=== PATIENT | male | born 1975 | race Caucasian/White ===

== ENCOUNTER 2017-02-09 10:20 | Observation (INO) | payer SELFPAY ==
[~2017-02-09] VITALS: Ht 177.8 cm; Wt 93.3 kg
[2017-02-09 10:59] LABS: DAU SCREEN DISCLAIMER
[2017-02-09] MEDS ORDERED: LORazepam 1MG TABLET PO ONE (11:00)
[2017-02-09 11:03] LABS: BLOOD UREA NITROGEN 6 mg/dL (7-18)
[2017-02-09 11:05] LABS: ACETAMINOPHEN < 2 mcg/mL (10-30)
[2017-02-09] MEDS ORDERED: LORazepam 1MG TABLET ONE (11:10)
[2017-02-09] MEDS ORDERED: ZIPRASIDONE 20MG CAPSULE PO PRN (14:30)
[2017-02-09] MEDS ORDERED: ZIPRASIDONE 20 MG INJ IM PRN (14:30)
[2017-02-09 15:09] VITALS: BP 163/83
[2017-02-09] MEDS ORDERED: POTASSIUM CHLORIDE 10 MEQ, MVI ADULT 10 ML, FOLIC ACID 1 MG, MAGNESIUM SULFATE 1 GM in ... IV SCH (15:15)
[2017-02-09] MEDS ORDERED: ENOXAPARIN 40 MG/0.4 ML SQ SCH (15:30)
[2017-02-09] MEDS ORDERED: LORazepam 2 MG/ML, 1ML IV PRN ×5 (15:30)
[2017-02-09] MEDS ORDERED: LORazepam 0.5MG TABLET PO PRN (15:30)
[2017-02-09] MEDS ORDERED: ACETAMINOPHEN 325 MG TABLET PO PRN (15:30)
[2017-02-09] MEDS ORDERED: LORazepam 1MG TABLET PO PRN ×4 (15:30)
[2017-02-09] MEDS: CHLORDIAZEPOXIDE 25 MG CAPSULE PO SCH ×2 (16:17→20:13)
[2017-02-09 19:39] VITALS: BP 150/82
[2017-02-10] MEDS: ACETAMINOPHEN 325 MG TABLET PO PRN ×3 (01:13→21:31)
[2017-02-10 02:56] VITALS: BP 149/80
[2017-02-10 07:44] VITALS: BP 150/93
[2017-02-10] MEDS: MULTIVITAMINS/MINERALS TABLET PO SCH (08:20)
[2017-02-10] MEDS: CHLORDIAZEPOXIDE 25 MG CAPSULE PO SCH ×3 (08:20→21:31)
[2017-02-10 13:24] VITALS: BP 146/68
[2017-02-10] MEDS: LORazepam 1MG TABLET PO PRN (14:53)
[2017-02-10] MEDS ORDERED: POTASSIUM CHLORIDE 10 MEQ, MVI ADULT 10 ML, FOLIC ACID 1 MG, MAGNESIUM SULFATE 1 GM in ... IV SCH (17:00)
[2017-02-10] MEDS: ENOXAPARIN 40 MG/0.4 ML SQ SCH (17:00)
[2017-02-10 20:00] VITALS: BP 144/74
[2017-02-11 02:26] VITALS: BP 126/87
[2017-02-11] MEDS: ACETAMINOPHEN 325 MG TABLET PO PRN ×3 (04:41→21:23)
[2017-02-11 06:59] VITALS: BP 133/80
[2017-02-11] MEDS: CHLORDIAZEPOXIDE 25 MG CAPSULE PO SCH ×3 (08:23→21:23)
[2017-02-11] MEDS: MULTIVITAMINS/MINERALS TABLET PO SCH (08:23)
[2017-02-11 12:53] VITALS: BP 144/83
[2017-02-11] MEDS: NICOTINE 14MG/24 HR PATCH.TD24 TD SCH (16:08)
[2017-02-11] MEDS: ENOXAPARIN 40 MG/0.4 ML SQ SCH (16:08)
[2017-02-11 20:28] VITALS: BP 132/64
[2017-02-12 01:50] VITALS: BP 122/69
[2017-02-12] MEDS: ACETAMINOPHEN 325 MG TABLET PO PRN ×2 (03:35→20:54)
[2017-02-12 07:39] VITALS: BP 126/83
[2017-02-12] MEDS: CHLORDIAZEPOXIDE 25 MG CAPSULE PO SCH ×3 (10:00→20:54)
[2017-02-12] MEDS: MULTIVITAMINS/MINERALS TABLET PO SCH (10:00)
[2017-02-12] MEDS: NICOTINE 14MG/24 HR PATCH.TD24 TD SCH (13:13)
[2017-02-12 14:57] VITALS: BP 127/86
[2017-02-12] MEDS: ENOXAPARIN 40 MG/0.4 ML SQ SCH (16:18)
[2017-02-12 20:30] VITALS: BP 145/87
[2017-02-13] MEDS: ACETAMINOPHEN 325 MG TABLET PO PRN ×3 (02:19→15:49)
[2017-02-13 02:29] VITALS: BP 118/78
[2017-02-13 07:20] VITALS: BP 152/88
[2017-02-13] MEDS: MULTIVITAMINS/MINERALS TABLET PO SCH (10:36)
[2017-02-13] MEDS: CHLORDIAZEPOXIDE 25 MG CAPSULE PO SCH ×2 (10:36→15:48)
[2017-02-13] MEDS: NICOTINE 14MG/24 HR PATCH.TD24 TD SCH (13:06)
[2017-02-13] MEDS ORDERED: CHLO25CA9 PO ×2 (13:56→17:40)
[2017-02-13 15:00] VITALS: BP 141/89
[2017-02-13] MEDS ORDERED: ENOXAPARIN 40 MG/0.4 ML SQ SCH (16:00)
[2017-02-13] MEDS: LORazepam 1MG TABLET PO PRN (16:02)
== END 2017-02-13 17:50 | disposition home or self-care (01) ==
LOC: ED 10:36 → EDIP 14:03 → 3E 14:51 → 3NE 16:02 → 4NOR 02-11 12:40
PROVIDERS: ADMIT Hospitalist; ATTEND Hospitalist
DX: R45.851 Suicidal ideations (principal); D72.829 Elevated white blood cell count, unspecified; G47.33 Obstructive sleep apnea (adult) (pediatric); F10.239 Alcohol dependence with withdrawal, unspecified; F33.2 Major depressive disorder, recurrent severe without psychotic features; I10 Essential (primary) hypertension; F17.200 Nicotine dependence, unspecified, uncomplicated
CPT/HCPCS: 36415; 80048; 80307; 80329; 81001; 82040; 84100; 85025; 96365; 96366; 96372; 96375; 99285; G0378; J1650; J2060; J3475; J3480; J7042; G0480

== ENCOUNTER 2018-06-19 02:49 | Emergency (ER) | payer MEDICAID ==
[~2018-06-19 02:49] MED LIST: CHLO25CA9 PO
[2018-06-19] MEDS ORDERED: MORPHINE SULFATE 4 MG/ML, 1ML IVPush PRN (03:00)
[2018-06-19] MEDS ORDERED: ASPIRIN 81 MG TABLET CHEW PO ONE (03:00)
[2018-06-19] MEDS ORDERED: SODIUM CHLORIDE FLUSH 10ML SYR IVF ONE (03:00)
[2018-06-19] MEDS ORDERED: MORPHINE SULFATE 4 MG/ML, 1ML ONE (03:02)
[2018-06-19] MEDS ORDERED: ASPIRIN 81 MG TABLET CHEW ONE (03:02)
[2018-06-19 03:10] LABS: BASOPHILS # (AUTO) 0.05 x10^3/uL (0-0.1); BASOPHILS % (AUTO) 0 % (0-1); EOSINOPHILS # (AUTO) 0.07 x10^3/uL (0-0.4); EOSINOPHILS % (AUTO) 1 % (1-7); LYMPHOCYTES % (AUTO) 14 % (22-44); MD NO; MEAN CORPUSCULAR HEMOGLOBIN 34.1 pg (27.5-34.5); MEAN CORPUSCULAR HGB CONC 34.4 g/dL (33.2-36.2); MEAN CORPUSCULAR VOLUME 99.1 fL (81-97); MONOCYTES # (AUTO) 0.71 x10^3/uL (0.2-0.8); MONOCYTES % (AUTO) 6 % (2-9); NEUTROPHILS # (AUTO) 10.26 x10^3/uL (1.8-6.8); NEUTROPHILS % (AUTO) 80 % (42-75); PLATELET COUNT 235 x10^3/uL (130-400); RED BLOOD COUNT 5.01 x10^6/uL (4.38-5.82); RED CELL DISTRIBUTION WIDTH 15.4 % (9.4-14.8)
[2018-06-19 03:23] LABS: ALBUMIN 3.4 g/dL (3.4-5.0); ANION GAP 5 mmol/L (5-15); CALCIUM 8.8 mg/dL (8.5-10.1); CHLORIDE 106 mmol/L (98-107)
[2018-06-19 03:29] LABS: ALANINE AMINOTRANSFERASE 29 U/L (12-78); ALKALINE PHOSPHATASE 112 U/L (45-117); BILIRUBIN,TOTAL 0.8 mg/dL (0.2-1.0); CREATININE 0.69 mg/dL (0.7-1.3); TOTAL PROTEIN 7.4 g/dL (6.4-8.2); TROPONIN I < 0.015 ng/mL (0.000-0.045)
[2018-06-19 03:45] LABS: AMPHETAMINE SCREEN, URINE Negative (Negative); BARBITURATE SCREEN, URINE Negative (Negative); BENZODIAZEPINE SCREEN, URINE Negative (Negative); CANNABINOID SCREEN, URINE Negative (Negative); COCAINE SCREEN, URINE Negative (Negative); METHADONE SCREEN, URINE Negative (Negative); OPIATE SCREEN, URINE Negative (Negative)
[2018-06-19 03:51] VITALS: BP 110/64
== END 2018-06-19 04:46 | disposition home or self-care (01) ==
LOC: ED 04:40
DX: R07.89 Other chest pain (principal); M94.0 Chondrocostal junction syndrome [Tietze]; I10 Essential (primary) hypertension; F17.210 Nicotine dependence, cigarettes, uncomplicated
CPT/HCPCS: 36415; 71046; 80053; 80307; 83690; 84484; 85025; 93005; 96374

== ENCOUNTER 2020-02-26 04:54 | Emergency (ER) | payer MEDICAID ==
[~2020-02-26] VITALS: Ht 177.8 cm; Wt 100.0 kg
--- NOTE | 2020-02-26 05:26 | NUR ---
Patient ESTHER paez from [facility]. 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 Unknown amount of time seizure lasted. Patient hit his head during his fall. Patient was AAOx3 and postictal for EMS. Currently patient AAOx4, GCS 15 but slightly confused about the seizure event. Respirations even and unlabored. Patient c/o head and neck pain. Denies nausea.
[2020-02-26] MEDS ORDERED: ONDANSETRON 2MG/ML, 2ML IVPush ONE (05:30)
[2020-02-26] MEDS ORDERED: MORPHINE SULFATE 4 MG/ML, 1ML IVPush PRN (05:30)
[2020-02-26] MEDS ORDERED: MORPHINE SULFATE 4 MG/ML, 1ML ONE (05:51)
[2020-02-26] MEDS ORDERED: ONDANSETRON 2MG/ML, 2ML ONE (05:51)
[2020-02-26 05:55] LABS: ALBUMIN 3.8 g/dL (3.4-5.0); ANION GAP 11 mmol/L (5-15); CALCIUM 8.1 mg/dL (8.5-10.1); CHLORIDE 101 mmol/L (98-107); CREATININE 0.92 mg/dL (0.7-1.3)
[2020-02-26 06:17] LABS: BASOPHILS # (AUTO) 0.04 x10^3/uL (0-0.1); BASOPHILS % (AUTO) 1 % (0-1); EOSINOPHILS # (AUTO) 0.16 x10^3/uL (0-0.4); EOSINOPHILS % (AUTO) 2 % (1-7); LYMPHOCYTES # (AUTO) 1.51 x10^3/uL (1-3.4); LYMPHOCYTES % (AUTO) 23 % (22-44); MD NO; MEAN CORPUSCULAR HEMOGLOBIN 36.6 pg (27.5-34.5); MEAN CORPUSCULAR HGB CONC 34.2 g/dL (33.2-36.2); MEAN CORPUSCULAR VOLUME 106.9 fL (81-97); MEAN PLATELET VOLUME 9.1 fL (7.4-10.4); MONOCYTES # (AUTO) 0.58 x10^3/uL (0.2-0.8); MONOCYTES % (AUTO) 9 % (2-9); NEUTROPHILS # (AUTO) 4.39 x10^3/uL (1.8-6.8); NEUTROPHILS % (AUTO) 66 % (42-75); PLATELET COUNT 160 x10^3/uL (130-400); RED BLOOD COUNT 4.07 x10^6/uL (4.38-5.82); RED CELL DISTRIBUTION WIDTH 14.7 % (9.4-14.8)
--- NOTE | 2020-02-26 06:51 | NUR ---
report received from shae thompson.
[2020-02-26] MEDS ORDERED: POTASSIUM CHLORIDE 20 MEQ TAB.ER.PRT ONE (06:54)
[2020-02-26] MEDS ORDERED: POTASSIUM CHLORIDE 20 MEQ TAB.ER.PRT PO ONE (07:00)
--- NOTE | 2020-02-26 07:00 | NUR ---
pt medicated per emar. pt tolerated well. pt's aox4. resps even and unlabored. urinal at bedside. pt aware of urine sample.
--- NOTE | 2020-02-26 07:11 | NUR ---
pt provided urine sample at this time. urine collected and ua sent.
[2020-02-26] MEDS ORDERED: MAGNESIUM SULFATE/D5W 100 ML IVPB ONE (07:15)
[2020-02-26] MEDS ORDERED: MAGNESIUM SULFATE 1 GM/2 ML IVPush ONE (07:30)
--- NOTE | 2020-02-26 07:35 | NUR ---
mag infusing at this time per emar. pt tolerated well.
[2020-02-26 07:37] LABS: AMPHETAMINE SCREEN, URINE Negative (Negative); BARBITURATE SCREEN, URINE Negative (Negative); BENZODIAZEPINE SCREEN, URINE Negative (Negative); CANNABINOID SCREEN, URINE Negative (Negative); COCAINE SCREEN, URINE Negative (Negative); METHADONE SCREEN, URINE Negative (Negative); OPIATE SCREEN, URINE Positive (Negative)
[2020-02-26 08:21] VITALS: BP 101/46
--- NOTE | 2020-02-26 08:46 | NUR ---
Patient given discharge instructions and they have confirmed that they understand the instructions. Patient ambulatory with steady gait.
== END 2020-02-26 08:47 | disposition home or self-care (01) ==
LOC: ED 05:44
DX: S16.1XXA Strain of muscle, fascia and tendon at neck level, initial encounter (principal); S00.93XA Contusion of unspecified part of head, initial encounter; E83.42 Hypomagnesemia; E87.6 Hypokalemia; R56.9 Unspecified convulsions; R55 Syncope and collapse; I21.9 Acute myocardial infarction, unspecified; I10 Essential (primary) hypertension; Z72.820 Sleep deprivation; X58.XXXA Exposure to other specified factors, initial encounter; Y93.89 Activity, other specified; Y92.89 Other specified places as the place of occurrence of the external cause; Y99.8 Other external cause status
CPT/HCPCS: 36415; 70450; 71045; 72125; 80048; 80307; 82040; 83735; 85025; 93005; 96365; 96375; 99285; J2270; J2405

== ENCOUNTER 2021-01-26 09:27 | Inpatient (IN) | payer MEDICAID ==
[~2021-01-26] VITALS: Ht 175.3 cm; Wt 95.3 kg
[2021-01-26] MEDS ORDERED: SODIUM CHLORIDE FLUSH 10ML SYR IVF ONE (10:30)
[2021-01-26] MEDS ORDERED: LIDOCAINE 1%, 10ML ONE (10:40)
[2021-01-26 10:54] LABS: BASOPHILS % (AUTO) 1 % (0-1); EOSINOPHILS % (AUTO) 0 % (1-7); LYMPHOCYTES % (AUTO) 14 % (22-44); MEAN CORPUSCULAR HEMOGLOBIN 41.7 pg (27.5-34.5); MEAN CORPUSCULAR HGB CONC 34.6 g/dL (33.2-36.2); MONOCYTES % (AUTO) 11 % (2-9); NEUTROPHILS % (AUTO) 74 % (42-75); PLATELET COUNT 177 x10^3/uL (130-400); RED BLOOD COUNT 2.73 x10^6/uL (4.38-5.82); RED CELL DISTRIBUTION WIDTH 14.2 % (9.4-14.8)
[2021-01-26 10:57] LABS: ALANINE AMINOTRANSFERASE 79 U/L (12-78); ALBUMIN 2.2 g/dL (3.4-5.0); ANION GAP 9 mmol/L (5-15); CALCIUM 7.4 mg/dL (8.5-10.1); CHLORIDE 99 mmol/L (98-107); CREATININE 1.61 mg/dL (0.7-1.3)
[2021-01-26 11:04] LABS: ALKALINE PHOSPHATASE 228 U/L (45-117); BILIRUBIN,TOTAL 4.5 mg/dL (0.2-1.0); TOTAL PROTEIN 7.2 g/dL (6.4-8.2)
--- NOTE | 2021-01-26 11:05 | NUR ---
PT OFF THE FLOOR TO IR FOR PARACENTESIS
[2021-01-26 11:20] LABS: MD SCAN
--- NOTE | 2021-01-26 11:52 | NUR ---
PT BACK IN ROOM
--- NOTE | 2021-01-26 11:56 | NUR ---
PT STATES THEY TOOK 7.2 LITERS FROM THE ABD. PT STATES THE PRESSURE HAS LESSESNED AND BREATHING IS EASIER.
[2021-01-26] MEDS ORDERED: NS + 40MEQ KCL 1,000 ML IV ONE ×2 (12:06→12:44)
[2021-01-26] MEDS ORDERED: POTASSIUM CHLORIDE 20 MEQ TAB.ER.PRT PO ONE (12:30)
[2021-01-26] MEDS ORDERED: CALCIUM GLUCONATE 4.6 MEQ in SODIUM CHLORIDE 0.9% 100 ML IV ONE (12:30)
[2021-01-26] MEDS ORDERED: CALCIUM GLUCONATE 4.6 MEQ/10 ML IVPush ONE (12:30)
[2021-01-26] MEDS ORDERED: POTASSIUM CHLORIDE 20 MEQ TAB.ER.PRT ONE (12:45)
[2021-01-26] MEDS ORDERED: LORazepam 2 MG/ML, 1ML IV PRN ×4 (13:00)
[2021-01-26] MEDS ORDERED: ACETAMINOPHEN 650 MG SUPP PR PRN (13:00)
[2021-01-26 13:18] LABS: INTERNATIONAL NORMALIZED RATIO 1.27 (0.93-1.1); PROTHROMBIN TIME 13.5 Seconds (9.6-11.5)
[2021-01-26] MEDS ORDERED: CHLORDIAZEPOXIDE 25 MG CAPSULE ONE (13:59)
[2021-01-26] MEDS: CHLORDIAZEPOXIDE 25 MG CAPSULE PO SCH ×2 (14:03→18:16)
--- NOTE | 2021-01-26 15:08 | NUR ---
REPORT CALLED TO ROXANA.
[2021-01-26 15:57] VITALS: BP 115/76
[2021-01-26] MEDS: MULTIVITAMINS/MINERALS TABLET PO SCH (16:09)
[2021-01-26] MEDS ORDERED: LISI40TA9 PO (16:26)
[2021-01-26] MEDS ORDERED: AMLO-150 PO (16:26)
[2021-01-26] MEDS: THIAMINE 100 MG in SODIUM CHLORIDE 0.9% 50 ML IV SCH (16:52)
[2021-01-26 17:37] LABS: AMPHETAMINE SCREEN, URINE Negative (Negative); BARBITURATE SCREEN, URINE Negative (Negative); BENZODIAZEPINE SCREEN, URINE Negative (Negative); CANNABINOID SCREEN, URINE Negative (Negative); COCAINE SCREEN, URINE Negative (Negative); METHADONE SCREEN, URINE Negative (Negative); OPIATE SCREEN, URINE Negative (Negative)
[2021-01-26 19:10] VITALS: BP 110/72
[2021-01-26 19:21] LABS: ANION GAP 8 mmol/L (5-15); CALCIUM 7.1 mg/dL (8.5-10.1); CHLORIDE 103 mmol/L (98-107); CREATININE 1.33 mg/dL (0.7-1.3)
[2021-01-27] MEDS: CHLORDIAZEPOXIDE 25 MG CAPSULE PO SCH ×4 (00:05→19:57)
[2021-01-27 00:12] VITALS: BP 104/70
[2021-01-27 05:13] LABS: ANION GAP 8 mmol/L (5-15); CALCIUM 7.1 mg/dL (8.5-10.1); CHLORIDE 105 mmol/L (98-107)
[2021-01-27 05:15] LABS: CREATININE 1.18 mg/dL (0.7-1.3)
[2021-01-27 06:39] VITALS: BP 106/72
[2021-01-27] MEDS: MULTIVITAMINS/MINERALS TABLET PO SCH (08:28)
[2021-01-27] MEDS ORDERED: MAGNESIUM SULFATE PMX 4GM/100M 100 ML IVPB ONE (08:30)
[2021-01-27 12:16] VITALS: BP 113/71
[2021-01-27] MEDS: THIAMINE 100 MG in SODIUM CHLORIDE 0.9% 50 ML IV SCH (12:54)
[2021-01-27] MEDS: POTASSIUM CHLORIDE 20 MEQ TAB.ER.PRT PO SCH (17:54)
[2021-01-27 21:23] VITALS: BP 103/69
[2021-01-28] MEDS: CHLORDIAZEPOXIDE 25 MG CAPSULE PO SCH ×2 (00:43→08:09)
[2021-01-28 00:47] VITALS: BP 99/66
[2021-01-28 06:04] LABS: MEAN CORPUSCULAR HEMOGLOBIN 43.5 pg (27.5-34.5); MEAN CORPUSCULAR HGB CONC 35.1 g/dL (33.2-36.2); MEAN PLATELET VOLUME 9.3 fL (7.4-10.4); PLATELET COUNT 170 x10^3/uL (130-400); RED BLOOD COUNT 2.49 x10^6/uL (4.38-5.82); RED CELL DISTRIBUTION WIDTH 14.6 % (9.4-14.8)
[2021-01-28 06:12] LABS: ALBUMIN 1.7 g/dL (3.4-5.0); ANION GAP 8 mmol/L (5-15); CALCIUM 7.4 mg/dL (8.5-10.1); CHLORIDE 106 mmol/L (98-107)
[2021-01-28 06:16] LABS: ALANINE AMINOTRANSFERASE 55 U/L (12-78); ALKALINE PHOSPHATASE 174 U/L (45-117); BILIRUBIN,TOTAL 3.3 mg/dL (0.2-1.0); CREATININE 1.04 mg/dL (0.7-1.3); TOTAL PROTEIN 5.8 g/dL (6.4-8.2)
[2021-01-28 07:40] VITALS: BP 123/80
[2021-01-28 08:05] LABS: MD YES; SEGS% (MANUAL) 76 % (42-75)
[2021-01-28 08:06] LABS: <PLATELET ESTIMATE> ADEQUATE; <PLT MORPHOLOGY> NORMAL PLT MORPH; BANDS%(MANUAL) 1 % (0-7); BASOS% (MANUAL) 1 % (0-1); EOS% (MANUAL) 1 % (1-7); LYMPH#(MANUAL) 1.46 x10^3/uL (1-3.4); LYMPHS% (MANUAL) 14 % (22-44); MONOS#(MANUAL) 0.73 x10^3/uL (0.3-2.7); MONOS% (MANUAL) 7 % (2-9); TOXIC GRAN 1+
[2021-01-28] MEDS: MULTIVITAMINS/MINERALS TABLET PO SCH (08:09)
[2021-01-28] MEDS: SPIRONOLACTONE 25 MG TABLET PO SCH ×2 (12:05→20:21)
[2021-01-28 13:10] VITALS: BP 110/76
[2021-01-28] MEDS: THIAMINE 100 MG in SODIUM CHLORIDE 0.9% 50 ML IV SCH (13:51)
[2021-01-28] MEDS: FUROSEMIDE 20 MG TABLET PO SCH ×2 (17:05→18:35)
[2021-01-28] MEDS: POTASSIUM CHLORIDE 20 MEQ TAB.ER.PRT PO SCH ×2 (17:05→18:35)
[2021-01-28 17:11] VITALS: BP 102/69
[2021-01-28 20:19] VITALS: BP 105/69
[2021-01-29 01:45] VITALS: BP 109/70
[2021-01-29 06:17] LABS: BASOPHILS % (AUTO) 1 % (0-1); EOSINOPHILS % (AUTO) 1 % (1-7); LYMPHOCYTES % (AUTO) 18 % (22-44); MEAN CORPUSCULAR HEMOGLOBIN 42.6 pg (27.5-34.5); MEAN CORPUSCULAR HGB CONC 34.5 g/dL (33.2-36.2); MEAN PLATELET VOLUME 9.2 fL (7.4-10.4); MONOCYTES % (AUTO) 13 % (2-9); NEUTROPHILS % (AUTO) 68 % (42-75); PLATELET COUNT 134 x10^3/uL (130-400); RED BLOOD COUNT 2.46 x10^6/uL (4.38-5.82); RED CELL DISTRIBUTION WIDTH 14.4 % (9.4-14.8)
[2021-01-29 06:18] LABS: MD NO
[2021-01-29 06:27] LABS: ANION GAP 9 mmol/L (5-15); CALCIUM 7.7 mg/dL (8.5-10.1); CHLORIDE 107 mmol/L (98-107); CREATININE 0.91 mg/dL (0.7-1.3)
[2021-01-29 06:44] VITALS: BP 114/74
[2021-01-29] MEDS: FUROSEMIDE 20 MG TABLET PO SCH ×2 (10:50→15:57)
[2021-01-29] MEDS: SPIRONOLACTONE 25 MG TABLET PO SCH ×2 (10:50→21:25)
[2021-01-29] MEDS: MULTIVITAMINS/MINERALS TABLET PO SCH (10:50)
[2021-01-29] MEDS: THIAMINE 100 MG in SODIUM CHLORIDE 0.9% 50 ML IV SCH (11:56)
[2021-01-29 12:18] VITALS: BP 107/79
[2021-01-29] MEDS ORDERED: MAGNESIUM SULFATE PMX 4GM/100M 100 ML IVPB ONE (15:30)
[2021-01-29] MEDS: POTASSIUM CHLORIDE 20 MEQ TAB.ER.PRT PO SCH (15:57)
[2021-01-29 18:32] VITALS: BP 100/69
[2021-01-30 00:57] VITALS: BP 106/66
[2021-01-30 05:40] LABS: ALANINE AMINOTRANSFERASE 56 U/L (12-78); ALBUMIN 1.8 g/dL (3.4-5.0); ANION GAP 8 mmol/L (5-15); CALCIUM 7.9 mg/dL (8.5-10.1); CHLORIDE 106 mmol/L (98-107); CREATININE 1.01 mg/dL (0.7-1.3)
[2021-01-30 05:42] LABS: ALKALINE PHOSPHATASE 185 U/L (45-117); BILIRUBIN,TOTAL 2.6 mg/dL (0.2-1.0); TOTAL PROTEIN 6.2 g/dL (6.4-8.2)
[2021-01-30 06:54] VITALS: BP 110/73
[2021-01-30] MEDS: SPIRONOLACTONE 25 MG TABLET PO SCH ×2 (08:54→21:11)
[2021-01-30] MEDS: MULTIVITAMINS/MINERALS TABLET PO SCH (08:54)
[2021-01-30] MEDS: FUROSEMIDE 20 MG TABLET PO SCH ×2 (08:54→17:40)
[2021-01-30 12:38] VITALS: BP 109/74
[2021-01-30] MEDS: THIAMINE 100 MG in SODIUM CHLORIDE 0.9% 50 ML IV SCH (13:43)
[2021-01-30] MEDS: POTASSIUM CHLORIDE 20 MEQ TAB.ER.PRT PO SCH (17:36)
[2021-01-30 18:55] VITALS: BP 101/64
[2021-01-30] MEDS: LACTULOSE 20 GM/30 ML UDC PO SCH (21:11)
[2021-01-31 01:01] VITALS: BP 109/75
[2021-01-31 06:56] VITALS: BP 110/73
[2021-01-31] MEDS: LACTULOSE 20 GM/30 ML UDC PO SCH (08:58)
[2021-01-31] MEDS: SPIRONOLACTONE 25 MG TABLET PO SCH (08:58)
[2021-01-31] MEDS: MULTIVITAMINS/MINERALS TABLET PO SCH (08:58)
[2021-01-31] MEDS: FUROSEMIDE 20 MG TABLET PO SCH (08:59)
[2021-01-31] MEDS ORDERED: FURO20TA3 PO (11:36)
[2021-01-31] MEDS ORDERED: SPIR25TA PO (11:36)
[2021-01-31] MEDS ORDERED: LACT20SO13 PO (11:36)
[2021-01-31] MEDS ORDERED: MULT-484 PO (11:36)
[2021-01-31] MEDS ORDERED: FLU VACC QS2020-21(6MOS UP)/PF 60MCG/0.5 ML SYR IM-VACC ONE (12:00)
[2021-01-31 13:02] VITALS: BP 100/70
== END 2021-01-31 13:12 | DRG 433 ==
LOC: ED 12:05 → SUATTDRO 12:48 → EDIP 12:54 → 5SO 15:37 → 4EST 01-28 19:10
PROVIDERS: ADMIT Hospitalist; ATTEND Hospitalist
PROC: 0W9G3ZZ Drainage of Peritoneal Cavity, Percutaneous Approach (ICD-10-PCS; principal; 2021-01-26)
DX: K70.11 Alcoholic hepatitis with ascites (principal); N17.9 Acute kidney failure, unspecified; K76.6 Portal hypertension; K70.31 Alcoholic cirrhosis of liver with ascites; I10 Essential (primary) hypertension; F17.210 Nicotine dependence, cigarettes, uncomplicated; F10.20 Alcohol dependence, uncomplicated; E87.6 Hypokalemia; E83.51 Hypocalcemia; D72.829 Elevated white blood cell count, unspecified; E83.42 Hypomagnesemia; Z87.730 Personal history of (corrected) cleft lip and palate; Z79.899 Other long term (current) drug therapy
CPT/HCPCS: 36415; 84145; 89051; 99291; J3490; 49083; 71045; 76700; 80048; 80053; 80307; 82140; 82607; 83735; 83880; 84100; 85025; 85610; 87070; 87205; 90686; 93005; G0378; J0610; J3411; J3475; J3480

== ENCOUNTER → 2021-02-13 | Outpatient (CLI) | payer MEDICAID ==
[~2021-02-13] MED LIST changes: +AMLO-150 PO; +FURO20TA3 PO; +LACT20SO13 PO; +LIDOCAINE 1%, 10ML ONE; +LISI40TA9 PO; +MULT-484 PO; +SPIR25TA PO
== END | disposition home or self-care (01) ==
LOC: RAD 09:41
PROVIDERS: ATTEND Internal Medicine
DX: R18.8 Other ascites (principal)
CPT/HCPCS: 49083; J3490

== ENCOUNTER 2021-02-27 09:41 | Emergency (ER) | payer MEDICAID ==
[~2021-02-27] VITALS: Ht 175.3 cm; Wt 110.0 kg
[~2021-02-27 09:41] MED LIST changes: -LIDOCAINE 1%, 10ML ONE
--- NOTE | 2021-02-27 10:03 | NUR ---
ESTHERA FROM [facility] TO HAVE "BELLY DRAINED" AND ABDOMINAL GAS PAIN. PT W/ ACITIES AND SOB. HX OF LIVER CIROSIS. ABDOMIN OBSERVED TO BE DISTENDED. PT POSTIONED TO COMFORT. ATTACHED TO MONITORS. VSS. JOSE. DR. RIBEIRO TO BEDSIDE FOR EVALUATION.
[2021-02-27] MEDS ORDERED: LIDOCAINE 1%, 10ML ONE (11:05)
--- NOTE | 2021-02-27 15:25 | NUR ---
REPORT TO KAYDEN AT [facility]
[2021-02-27 15:32] VITALS: BP 118/84
--- NOTE | 2021-02-27 15:32 | NUR ---
PT REC'VD DISCHARGE INSTRUCTIONS AND EDUCATION. PT HAD NO FURTHER QUESTIONS.
--- NOTE | 2021-02-27 15:33 | NUR ---
TRANSPORT FROM [facility] BEDSIDE. PT PLACED IN WHEELCHAIR. PT WHEELED OUT BY [facility] STAFF FOR TRANSPORT BACK TO FACILITY.
== END 2021-02-27 15:36 | disposition home or self-care (01) ==
LOC: ED 13:16
DX: K70.31 Alcoholic cirrhosis of liver with ascites (principal); R94.31 Abnormal electrocardiogram [ECG] [EKG]; I10 Essential (primary) hypertension; Z88.0 Allergy status to penicillin
CPT/HCPCS: 49083; 93005; 99285; J3490

== ENCOUNTER 2021-03-09 11:20 | Emergency (ER) | payer MEDICAID ==
[~2021-03-09] VITALS: Ht 172.7 cm; Wt 103.5 kg
[2021-03-09] MEDS ORDERED: LIDOCAINE 1%, 20ML ONE (13:41)
[2021-03-09 14:22] LABS: BASOPHILS % (AUTO) 1 % (0-1); EOSINOPHILS % (AUTO) 1 % (1-7); LYMPHOCYTES % (AUTO) 16 % (22-44); MEAN CORPUSCULAR HGB CONC 34.6 g/dL (33.2-36.2); MEAN PLATELET VOLUME 6.8 fL (7.4-10.4); MONOCYTES % (AUTO) 12 % (2-9); NEUTROPHILS % (AUTO) 70 % (42-75); PLATELET COUNT 397 x10^3/uL (130-400); RED CELL DISTRIBUTION WIDTH 15.7 % (9.4-14.8)
[2021-03-09 14:25] LABS: ALBUMIN 2.1 g/dL (3.4-5.0); ANION GAP 10 mmol/L (5-15); CALCIUM 8.6 mg/dL (8.5-10.1); CHLORIDE 96 mmol/L (98-107); CREATININE 0.86 mg/dL (0.7-1.3)
[2021-03-09 14:28] LABS: ALANINE AMINOTRANSFERASE 32 U/L (12-78); ALKALINE PHOSPHATASE 188 U/L (45-117); BILIRUBIN,TOTAL 1.1 mg/dL (0.2-1.0); TOTAL PROTEIN 7.6 g/dL (6.4-8.2)
--- NOTE | 2021-03-09 14:43 | NUR ---
NOT IN LOBBY. CALLED @ [phone]
--- NOTE | 2021-03-09 15:45 | NUR ---
PT TO ROOM FROM LOBBY
[2021-03-09 15:59] VITALS: BP 123/79
--- NOTE | 2021-03-09 15:59 | NUR ---
DISCHARGED FROM LOBBY AFTER POST PARACENTESIS EVAL BY [employer] MACHINE/ERP
== END 2021-03-09 16:01 | disposition home or self-care (01) ==
LOC: ED 11:31
DX: K70.31 Alcoholic cirrhosis of liver with ascites (principal); R00.0 Tachycardia, unspecified; I10 Essential (primary) hypertension; Z90.89 Acquired absence of other organs
CPT/HCPCS: 36415; 49083; 80053; 85025; 99285; J3490

== ENCOUNTER 2021-04-06 09:35 | Emergency (ER) | payer MEDICAID ==
[~2021-04-06] VITALS: Ht 175.3 cm; Wt 101.9 kg
--- NOTE | 2021-04-06 10:08 | NUR ---
ASSUMED CARE OF PT. HE CAME FROM DR OFFICE THIS AM AND NEEDS A PARACENTESIS AND IS STILL WAITING FOR APPOINTMENT W/ GASTRO.
--- NOTE | 2021-04-06 10:09 | NUR ---
MD BEDSIDE VSS, CALL LIGHT W/IN REACH
[2021-04-06] MEDS ORDERED: LIDOCAINE-MPF 1%, 5ML ONE (10:43)
--- NOTE | 2021-04-06 11:02 | NUR ---
IR TECH PRESENT, SETTING UP FOR PARACENTESIS. TECH DENIES NEEDING ANYTHING. NADN, CALL LIGHT W/ IN REACH.
--- NOTE | 2021-04-06 11:49 | NUR ---
GET SOLIS AND PRESENT FOR PARACENTSIS. JOSE RAI.
[2021-04-06 12:20] VITALS: BP 139/67
--- NOTE | 2021-04-06 12:33 | NUR ---
Patient given discharge instructions and they have confirmed that they understand the instructions. Patient ambulatory with steady gait.
== END 2021-04-06 12:47 | disposition home or self-care (01) ==
LOC: ED 11:17
DX: K70.31 Alcoholic cirrhosis of liver with ascites (principal); R00.0 Tachycardia, unspecified; I10 Essential (primary) hypertension; Z90.89 Acquired absence of other organs
CPT/HCPCS: 49083; 93005; 99285

== ENCOUNTER 2021-04-13 07:08 | Emergency (ER) | payer MEDICAID ==
[~2021-04-13] VITALS: Ht 175.3 cm; Wt 98.0 kg
--- NOTE | 2021-04-13 07:37 | NUR ---
FIRST CONTACT WITH PT: PER PT "I NEED TO GET THE PERICENTESIS AGAIN" PT TO ROOM WITH STEADY GAIT. POSTIONED TO COMFORT IN BED. VSS. JACLYNN. AWAITING ORDERS.
--- NOTE | 2021-04-13 07:42 | NUR ---
JESÚS MUNGUIA TO BEDSIDE FOR EVALUATION
[2021-04-13] MEDS ORDERED: LIDOCAINE-MPF 1%, 5ML ONE (08:05)
--- NOTE | 2021-04-13 08:28 | NUR ---
PT TO IR
--- NOTE | 2021-04-13 09:11 | NUR ---
PT IN IR
--- NOTE | 2021-04-13 09:17 | NUR ---
PT BACK FROM IR. 10.1 L OFF FROM PARACENTESIS. VSS. NADN
[2021-04-13 10:08] VITALS: BP 105/43
--- NOTE | 2021-04-13 10:09 | NUR ---
PT RESTING IN BED. VSS. NADN. UP FOR RECHECK
--- NOTE | 2021-04-13 10:29 | NUR ---
Patient given discharge instructions and they have confirmed that they understand the instructions. Patient ambulatory with steady gait. NAD, all questions answered appropriately, denies additional needs at this time. No personal belongings left in room after discharge.
== END 2021-04-13 10:30 | disposition home or self-care (01) ==
LOC: ED 07:41
DX: K70.31 Alcoholic cirrhosis of liver with ascites (principal); R00.0 Tachycardia, unspecified
CPT/HCPCS: 49083; 99285

== ENCOUNTER 2021-04-26 07:27 | Emergency (ER) | payer MEDICAID ==
[~2021-04-26] VITALS: Ht 175.3 cm; Wt 96.6 kg
--- NOTE | 2021-04-26 07:50 | NUR ---
PT HAS ASCITES, NEEDS PARACENTISIS. ETOH. BILAT LEG SWELLING
[2021-04-26] MEDS ORDERED: LIDOCAINE-MPF 1%, 5ML ONE (08:12)
--- NOTE | 2021-04-26 08:47 | NUR ---
PT IN IR
[2021-04-26 09:34] VITALS: BP 116/69
--- NOTE | 2021-04-26 09:35 | NUR ---
PT BACK FROM IR. REMOVED 8.7L
--- NOTE | 2021-04-26 10:51 | NUR ---
Patient given discharge instructions and they have confirmed that they understand the instructions. Patient dc via wheelchair and cane
== END 2021-04-26 10:52 | disposition home or self-care (01) ==
LOC: ED 07:31
DX: K70.31 Alcoholic cirrhosis of liver with ascites (principal); Z90.89 Acquired absence of other organs
CPT/HCPCS: 49083; 99285

== ENCOUNTER 2021-05-08 12:01 | Outpatient (CLI) | payer MEDICAID ==
[2021-05-08] MEDS ORDERED: LIDOCAINE 1%, 10ML ONE ×2 (12:19→13:35)
== END 2021-05-08 23:59 | disposition home or self-care (01) ==
LOC: RAD 12:01
PROVIDERS: ATTEND Internal Medicine Geriatric Medicine
DX: R18.8 Other ascites (principal); K74.60 Unspecified cirrhosis of liver
CPT/HCPCS: 49083; 82042; 84157; 87070; 87075; 87077; 87186; 87205; 88112; 88305; 89051; J3490